=== PATIENT | female | born 1955 | race Caucasian/White ===

== ENCOUNTER 2019-07-06 15:28 | Observation (INO) | payer OTHER ==
[~2019-07-06] VITALS: Ht 162.6 cm; Wt 62.6 kg
--- NOTE | ~2019-07-06 | HEMODYNAMI ---
PATIENT:KENIA SANDHU MEDICAL RECORD: [id number] : 55 LOCATION:[address] [facility]# [id number] ADMISSION DATE: 07/06/19 Generatedon:07/07/201915:36 Patient name: KENIA SANDHU Patient #: [id number] : 1955 Date of study: 07/07/2019 Page: Of Hemodynamic Procedure Report Patient Data Patient Demographics Procedure consent was obtained First Name: KENIA Gender: Female Last Name: PHOEBE : 1955 Middle Initial: A Age: 63 year(s) Patient #: [id number] Race: SSN: [id number] Additional ID: [id number] Contact details [address]: [address] [place] [address] [address] State: [place] City: [place] Zip code: [address] Past Medical History Allergies Allergen Reaction Date Comments Reported Other allergy 07/07/2019 codeine, erythromycin base. Admission Admission Data Admission Date: 07/06/2019 Admission Time: 18:34 Arrival Date: 07/07/2019 Arrival Time: 0:00 Room #: D.2127 Insurance Payor: Private health insurance [facility] #: [id number] Height (in.): 64 BSA: 1.67 (m2) Height (cm.): 162.56 BMI: 23.69 (kg/m2) Weight (lbs.): 138 Weight (kg.): 62.6 Procedure Procedure Types Cath Procedure Diagnostic Procedure LHC [facility] w/Coronaries FFR/IVUS FFR Initial FFR Additional PCI Procedure Coronary Stent Coronary Stent Initial Procedure Description Procedure Date Procedure Date: 07/07/2019 Procedure Start Time: 15:03 Procedure End Time: 15:35 Procedure Staff Name Function Néstor Henning MD Performing Physician Kaylee Da Silva RT Scrub Wale Thomas RN Nurse Montana Marrero RT Monitor Jose Woodard RT Scrub Procedure Data Cath Procedure Fluoroscopy Diagnostic fluoroscopy Total fluoroscopy Time: 6.4 time: 6.4 min min Diagnostic fluoroscopy Total fluoroscopy dose: 451 dose: 451 mGy mGy Contrast Material Contrast Material Type Amount (ml) Isovue 300 124 Entry Location Entry Primary Successful Side Size Upsize Upsize Entry Closure Wiley ccessful Closure Location (Fr) 1 (Fr) 2 (Fr) Remarks Device Remarks Radial Right 6 Fr Mechanical artery Short Compression Estimated blood loss: 10 ml Diagnostic catheters Device Type Used For End Catheter Placement DIAGNOSTIC [place] 110cm 5 Procedure Fr catheter ([id number]) DIAGNOSTIC AR2 MOD 5 Fr Procedure catheter ([id number]) Procedure Complications No complications Procedure Medications Medication Administration Route Dosage 0.9% NaCl I.V. 100 ml/hr Oxygen etCO2 Nasal cannula 2 l/min Heparin Flush Bag added to field 2 bags (1000units/500ml NS) Lidocaine 2% added to field 20 Radial Cocktail added to field 1 syringe (Verapamil 2mg/Nitro 400mcg/Heparin 1500units) Versed I.V. 2 mg Fentanyl I.V. 100 mcg Versed I.V. 2 mg Fentanyl I.V. 50 mcg Heparin Bolus 4000 units Fentanyl I.V. 50 mcg Plavix P.O. 75 mg Hemodynamics Rest BSA: 1.67 (m2) O2 Consumption: Estimated: 155.23 (ml/min) O2 Consumption indexed : Estimated:92.95 (ml/min/m) Heart Rate: 67 (bpm) Snapshots Pre Cath Intra NCS Post Cath Vital Signs Time Heart Resp SPO2 etCO2 NIBP Rhythm Pain Sedation Rate (ipm) (%) (mmHg) (mmHg) Status Level (bpm) 14:57:51 67 13 99 43.3 113/68(82) NSR 0 (11) 10(A) , No pain 15:01:59 66 18 98 39.5 113/61(81) NSR 0 (11) 10(A) , No pain 15:06:05 65 15 98 33.5 117/64(93) NSR 0 (11) 10(A) , No pain 15:10:17 91 11 94 35.8 95/55(70) NSR 0 (11) 10(A) , No pain 15:14:20 71 21 95 38 94/55(73) NSR 0 (11) 10(A) , No pain 15:18:22 69 16 96 38.7 95/59(77) NSR 0 (11) 10(A) , No pain 15:22:24 73 13 97 38.7 98/60(81) NSR 0 (11) 9(A) , No pain 15:26:26 80 12 97 35 107/61(74) NSR 0 (11) 9(A) , No pain 15:30:31 77 25 98 40.3 106/64(82) NSR 0 (11) 10(A) , No pain 15:34:37 72 24 98 26.8 107/62(85) NSR 0 (11) 10(A) , No pain Medications Time Medication Route Dose Verified Delivered Reason Not es Effectiveness by by 14:56:02 0.9% NaCl I.V. 100 Wale Wale Per physician ml/hr Martha Thomas RN RN 14:56:12 Oxygen etCO2 2 l/min Wale Wale for low 02 sats Nasal Lorigan Martha cannula RN RN 14:56:21 Heparin Flush added 2 bags Wale Wale used for Bag to Lorvicky Thomas procedure (1000units/500ml field IVY RN NS) 14:56:31 Lidocaine 2% added 20ml Wale Wale for local to vial Lorigan Lorigan anesthetic field IVY RN 14:56:41 Radial Cocktail added 1 Wale Wale used for (Verapamil to syringe Lorigan Lorvicky procedure 2mg/Nitro field IVY RN 400mcg/Heparin 1500units) 14:58:16 Versed I.V. 2 mg Wale Wale for sedation Martha Thomas RN RN 14:58:24 Fentanyl I.V. 100 mcg Wale Wale for sedation Martha Thomas RN RN 15:04:32 Versed I.V. 2 mg Wale Wale for sedation Martha Thomas RN RN 15:15:10 Fentanyl I.V. 50 mcg Wale Wale for sedation Martha Thomas RN RN 15:18:55 Heparin Bolus 4000 Wale Wale for units Martha Thomas anticoagulation RN RN 15:22:20 Fentanyl I.V. 50 mcg Wale Wale for sedation Martha Thomas RN RN 15:29:08 Plavix P.O. 75 mg Wale Wale for Martha Thomas antiplatelet RN RN therapy Procedure Log Time Note 14:28:18 Informed consent obtained and on chart 14:28:46 Patient Weight : 138 lbs 14:28:51 Patient Height : 64 inches 14:28:51 Insurance Payor : Private health insurance 14:29:04 Arrival Date: 07/07/2019 12:00:00 AM 14::43 Lab Result : Hemoglobin 13.6 g/dl 14::43 Lab Result : Hematocrit 40.1 % 14::43 Lab Result : BUN 29 mg/dl 14::43 Lab Result : Creatinine 0.9 mg/dl 14:30:21 Wale Thomas RN sent for patient. Start room use. 14:33:11 Diagnostic Cath Status : Urgent 14:33:32 ACC Patient presents with Unstable Angina CCS Anginal Class 4--Inability to carry out any physical activity w/o angina. Angina may occur at rest. 14:33:34 ACCPatient has been prescribed/administered the following anti-anginal medication within the last 2 weeks: None 14:41:19 Procedure Status Urgent Heart Cath (IP). 14:45:22 Time tracking: Regular hours (M-F 7:00 - 5:00) 14:45:25 Plan of Care:Hemodynamics will remain stable., Cardiac rhythm will remain stable., Comfort level will be maintained., Respiratory function will remain adequate., Patient/ family verbilizes understanding of procedure., Procedure tolerated without complication., Recovers from procedure without complications.. 14:45:38 Patient received from Med II to CCL 1 Alert and oriented. Tansferred to table in Supine position. 14:45:39 Warm blankets applied, and chandu hugger turned on for patient comfort. 14:45:40 Correct patient and procedure confirmed by team. 14:45:40 ECG and BP/O2 sat monitors applied to patient. 14:46:14 H&P Date Dictated: 07/06/2019 Within 30 days and on chart.. 14:46:29 Pre-procedure instructions explained to patient. 14:46:29 Pre-op teaching completed and patient verbalized understanding. 14:46:32 Family in patients room. 14:46:34 Patient NPO since Midnight. 14:46:56 Patient allergic to Other allergycodeine, erythromycin base. 14:47:08 Is the patient allergic to Iodine/contrast media? No. 14:47:17 Is patient on blood thinner?Yes 14:47:20 ACC The patient was administered the following blood thiners within the last 24 hours: ACCAspirin, ACCPlavix 14:47:21 Patient diabetic? No. 14:47:24 Previous problem with sedation/anesthesia? No ? 14:47:25 Snore? Yes 14:47:26 Sleep apnea? No 14:47:27 Deviated septum? No 14:47:28 Opens mouth fully? Yes 14:47:29 Sticks out tongue? Yes 14:47:33 Airway obstruction? No ? 14:47:36 Dentures? No ? 14:56:02 0.9% NaCl 100 ml/hr I.V. was administered by Wale Thomas RN; Per physician; 14:56:12 Oxygen 2 l/min etCO2 Nasal cannula was administered by Wale Thomas RN; for low 02 sats; 14:56:12 Pre procedure: right dorsailis pedis pulse 2+ Normal; easily identifiable; not easily obliterated 14:56:14 Modified Salvador's test Ulnar < 7 seconds 14:56:17 Patient pain scale 0/10 ?. 14:56:21 Heparin Flush Bag (1000units/500ml NS) 2 bags added to field was administered by Wale Thomas RN; used for procedure; 14:56:24 Patient pain scale 5/10 chest pain. 14:56:30 IV patent on arrival in right wrist with 0.9% NaCl at [facility]. 14:56:31 Lidocaine 2% 20ml vial added to field was administered by Wale Thomas RN; for local anesthetic; 14:56:32 Lab results completed and on chart. 14:56:35 Right Radial & Right Groin area was prepped with chlora-prep and draped in sterile fashion 14:56:36 Alarms reviewed by R. N. 14:56:36 Sharps counted by scrub and verified by R.N. 14:56:41 Radial Cocktail (Verapamil 2mg/Nitro 400mcg/Heparin 1500units) 1 syringe added to field was administered by Wale Thomas RN; used for procedure; 14:56:41 Physician arrived 14:56:42 --------ALL STOP TIME OUT------ 14:56:42 Final Timeout: patient, procedure, and site verified with staff and physician. All members of the team are in agreement. 14:56:43 Vital chart was started 14:56:44 Right Radial & Right Groin site verified by team. 14:56:46 Fire Safety Assessment: A--An alcohol-based skin anteseptic being used preoperatively., C--Open oxygen or nitrous oxide is being used., D--An ESU, laser, or fiber-optic light is being used. 14:56:49 Physical assessment completed. ASA score P 2 - A patient with mild systemic disease as per Néstor Henning MD. 14:57:02 2) 60-89 Mildly reduced kidney function, and other findings (as for stage 1) point to kidney disease. 14:57:17 Maximum allowable contrast dose (3.7 X eGFR X 0.75)186 ml. 14:57:20 Sedation plan: IV Moderate Sedation Medication:Versed, Fentanyl 14:57:25 Use device set Radial Dx or PCI 14:57:26 ACIST Syringe (10792) opened to sterile field. 14:57:26 Medline Cath Pack ([id number]) opened to sterile field. 14:57:27 Bag Decanter (2002S) opened to sterile field. 14:57:27 ACIST Hand Control (86580) opened to sterile field. 14:57:27 ACIST Manifold (89069) opened to sterile field. 14:57:28 Tegaderm 4 x 4 (1626W) opened to sterile field. 14:57:28 MBrace Wrist Support ([id number]) opened to sterile field. 14:57:29 SHEATH 6FR RAIN (0653659) opened to sterile field. 14:57:31 EMERALD Guide Wire (031-913) opened to sterile field. 14:58:16 Versed 2 mg I.V. was administered by Wale Thomas RN; for sedation; 14:58:24 Fentanyl 100 mcg I.V. was administered by Wale Thomas RN; for sedation; 14:59:03 Baseline sample Acquired. 14:59:06 Rhythm: sinus rhythm 14:59:07 Full Disclosure recording started 15:03:23 Procedure started. 15:03:26 Local anesthetic to right radial artery with Lidocaine 2% by Néstor Henning MD.INITIAL ACCESS ONLY 15:03:35 A 6 Fr Short sheath was inserted into the Right Radial artery 15:04:32 Versed 2 mg I.V. was administered by Wale Thomas RN; for sedation; 15:06:26 Zero performed for pressure channel P1 15:06:29 Zero performed for pressure channel P1 15:06:45 A DIAGNOSTIC [place] 110cm 5 Fr catheter (593521) was advanced over the wire and used for Procedure. 15:07:15 LV gram done using FERREIRA 15:07:17 Injector settings: Ml/sec: 5, Volume: 15, 15:07:30 LV hemodynamics recorded. 15:07:58 EF : 60 % 15:08:31 Catheter exchanged over wire. 15:09:12 GUIDE 6FR XBLAD 3.5 catheter (04785836) opened to sterile field. 15:10:11 6 Fr xblad 3.5 guide catheter was inserted over the wire 15:10:29 LCA angiography performed. 15:13:39 Dundas Verrata Plus pressure wire (11395X) opened to sterile field. 15:13:42 INFLATOR Merit BasixCompak (TJ5079) opened to sterile field. 15:13:51 Proceeding to intervention. 15:14:40 FFR/IFR wire advanced. 15:15:10 Fentanyl 50 mcg I.V. was administered by Wale Thomas RN; for sedation; 15:15:55 Wire advanced across lesion. 15:16:57 pLAD lesion measured at 75 with IFR 15:17:22 Pre PCI Site: [place] pLAD has 70% stenosis. 15:17:58 ACT drawn and resulted at 277 seconds. (normal therapeutic range 180-240 seconds). 15:18:55 Heparin Bolus 4000 units was administered by Wale Thomas RN; for anticoagulation; 15:20:16 Place stent Inflation Number: 1 A COBRA RX 3.5 X 24 Stent was prepped and advanced across the Prox LAD 75. The stent was deployed at 13 EDWAR for 0:10 (min:sec) 0. 15:21:07 Stent catheter was removed intact over wire. 15:21:08 Wire removed. 15:21:09 Guide catheter removed. 15:21:57 A DIAGNOSTIC AR2 MOD 5 Fr catheter (562852Y) was advanced over the wire and used for Procedure. 15:22:20 Fentanyl 50 mcg I.V. was administered by Wale Thomas RN; for sedation; 15:22:25 RCA angiography performed. 15:23:01 Catheter removed. 15:23:24 GUIDE 6FR AR 2.0 catheter (CG3QO28) opened to sterile field. 15:23:42 6 Fr AR 2 guide catheter was inserted over the wire 15::35 FFR/IFR wire advanced. 15:26:37 Wire advanced across lesion. 15::55 pRCA lesion measured at 1.0 with IFR 15:27:12 Wire removed. 15:27:13 Guide catheter removed. 15:: TR BAND Standard ([id number]) opened to sterile field. 15:28:04 Sheath removed intact; hemostasis achieved with Mechanical Compression to the Right Radial artery. 15:28:07 Procedure ended.(Physican Out) 15:28:20 Fluoroscopy time 06.40 minutes. 15:: Flurop Dose total: 451 15:: Fluoroscopy dose: 451 mGy 15:: Dose Area Product 09401 mGy/cm. 15::55 Contrast amount:Isovue 300 124ml. 15:29:08 Plavix 75 mg P.O. was administered by Wale Thomas RN; for antiplatelet therapy; 15:29:36 Maximum allowable dose exceeded? No. 15:29:37 Sharps counted by scrub and verified by R.N. 15:30:24 ACC Pre-intervention BAN Flow is 3. 15:30:29 ACC Post-intervention BAN Flow is 3. 15:31:53 ACCDominant side:Right 15:31:58 TR band inflated with 12cc of air. 15:32:11 Insertion/operative site no bleeding no hematoma. 15:32:15 Post-op/insertion site Right Radial artery dressed using a 4 x 4 and Tegaderm. 15:32:21 Post right radial artery:stable, soft, clean and dry 15:32:22 Post Procedure Pulses reassessed and unchanged 15:32:26 Post-procedure physical assessment completed. ASA score P 2 - A patient with mild systemic disease as per Néstor Henning MD. 15:32:28 Post procedure rhythm: unchanged. 15:32:32 Estimated blood loss: 10 ml 15:32:34 Post procedure instruction explained to patient.Patient verbalizes understanding. 15:32:34 Patient needs reinforcement of post procedure teaching. 15:33:24 Procedure type changed to Cath procedure, Diagnostic procedure, [facility], [facility] w/Coronaries, FFR/IVUS, FFR Initial, FFR Additional, PCI procedure, Coronary Stent, Coronary Stent Initial 15:35:11 Procedure and supply charges have been captured, reviewed, submitted and are correct. 15:35:14 Procedure Complication : No complications 15:35:16 Vital chart was stopped 15:35:26 See physician's report for complete and final results. 15:35:29 Report given to PCU. 15:35:31 Patient transfered to PCU with Stretcher. 15:35:33 Procedure ended. 15:35:33 Full Disclosure recording stopped 15:35:40 ACC-PCI Only Patient was given prescriptions, or instructed by Néstor Henning MD to start/continue the following medications upon discharge: Aspirin, Plavix 15:35:42 End room use (Document Last) Intervention Summary Intervention Notes Time ActionType Lesion and Equipment Action# Pressure Duration Attributes Used 15:20:16 Place stent Prox LAD COBRA RX 1 13 00:10 3.5 X 24 Stent Device Usage Item Name Manufacture Quantity Catalog Hospital Part Current Minimal Lot# / Number Charge Number Stock Stock Serial# Code ACIST Syringe Acist 1 26245 170390 639390 795154 20 (62167) Medical Systems Inc Medline Cath Medline 1 [id number] 430462 55261 801920 5 Pack ([id number]) Bag Decanter Microtek 1 2001S 507903 48731 196269 5 (2001S) Medical Inc. ACIST Hand Acist 1 96621 458127 200348 189979 5 Control Medical (81844) Systems Inc ACIST Manifold Acist 1 04280 410886 205703 950816 5 (02329) Medical Systems Inc Tegaderm 4 x 4 3M 1 1626W 080982 114361 721133 5 (1626W) MBrace Wrist Advanced 1 140-0250-00 081957 29272 682818 5 Support Vascular (063571712) Dynamics SHEATH 6FR Cardinal 1 4705867 192968 2664157 007065 5 RAIN (1748394) [facility] EMERALD Guide Cardinal 1 502-455 150742 203681 017074 5 Wire (837-457) [facility] DIAGNOSTIC Terumo 1 40-0063 488436 297722 705811 5 [place] 110cm 5 Fr catheter (308279) GUIDE 6FR Cardinal 1 80942972 969568 656463 110776 10 XBLAD 3.5 Health catheter (64001642) Dundas Dundas 1 52303T 698616 512373411 108491 5 Verrata Plus pressure wire (82701H) INFLATOR Merit Merit 1 PD6005 268404 525602 624637 15 [facility] Medical (LI0345) COBRA RX 3.5 X Celonova 1 029983 [id number] 4673746 5 [id number] 24 stent Biosciences () DIAGNOSTIC AR2 Cardinal 1 [id number] 105580 206173 907034 20 MOD 5 Fr Health catheter (725548W) GUIDE 6FR AR Medtronic 1 [id number] 122468 27216 049053 1 2.0 catheter (MH0MU51) TR BAND Terumo 1 TFH54-LPD 832970 993997 804414 40 Standard ([id number]) Signature Audit [place] Stage Time Signature Unsigned Intra-Procedure 07/07/2019 Jose Woodard 3:36:50 PM RT(R) Signatures Performing Physician : Signature : Néstor Henning MD Date : Time : Nurse : Wale Thomas Signature : RN Date : Time : Monitor : Montana Marrero RT Signature : Date : Time : [facility] [address] [place] [address]
[2019-07-06] MEDS ORDERED: DYRENIUM50 MG PO (16:03)
[2019-07-06] MEDS ORDERED: LINZESS290 MCG PO (16:03)
[2019-07-06] MEDS ORDERED: K-DUR20 MEQ PO (16:03)
[2019-07-06] MEDS ORDERED: AMBIEN5 MG PO (16:04)
[2019-07-06] MEDS ORDERED: CELEBREX 100 M100 MG PO (16:04)
[2019-07-06] MEDS ORDERED: LEVOXYL125 MCG PO (16:04)
[2019-07-06] MEDS ORDERED: LEXAPRO10 MG PO (16:04)
[2019-07-06 16:13] LABS: BASOPHILS 0.4 % (0-2); EOSINOPHILS 1.9 % (0-7); HEMATOCRIT 40.1 % (36.0-48.0); HEMOGLOBIN 13.6 g/dL (12-16); IMMATURE GRANULOCYTES 0.1 % (0-5); LYMPHOCYTES 33.3 % (15-50); MCH 29.9 pg (26.0-34.0); MCHC 33.9 g/dL (31.0-37.0); MCV 88.1 fL (80.0-100.0); MEAN PLATELET VOLUME 8.6 fL (7.4-10.4); MONOCYTES 9.7 % (2-11); NEUTROPHILS 54.6 % (40-80); PLATELET COUNT 263 10x3/uL (130-400); RBC 4.55 10x6/uL (4.00-5.40); RDW 15.1 % (11.5-14.5)
[2019-07-06 16:21] LABS: APTT 28.6 SECONDS (22.8-39.4); INR 0.87 (0.85-1.17); PROTIME 11.3 SECONDS (11.6-15.0)
[2019-07-06 16:22] LABS: ALBUMIN 3.2 g/dL (3.4-5.0); ALKALINE PHOSPHATASE 106 U/L (46-116); ALT (SGPT) 43 U/L (10-68); BILIRUBIN - TOTAL 0.29 mg/dL (0.2-1.3); CALC OSMOLALITY 282 mosm/kg (275-300); CALCIUM 8.4 mg/dL (8.5-10.1); CARBON DIOXIDE 29.9 mmol/L (21.0-32.0); CHLORIDE - SERUM 102 mmol/L (98-107); CREATININE - SERUM 0.9 mg/dL (0.6-1.3); GLUCOSE 108 mg/dL (74-106); POTASSIUM - SERUM 3.2 mmol/L (3.5-5.1); PROTEIN - SERUM 6.8 g/dL (6.4-8.2); SODIUM 138 mmol/L (136-145); UREA NITROGEN 29 mg/dL (7-18); eGFR NON AFRICAN AMERICAN 67 mL/min (90-120)
[2019-07-06 16:33] LABS: CKMB 1.5 U/L (0.0-3.6); CREATINE KINASE 55 UL (21-215); MAGNESIUM - SERUM 2.5 mg/dL (1.8-2.4)
[2019-07-06 16:36] LABS: TROPONIN-I < 0.017 ng/mL (0.000-0.060)
--- NOTE | 2019-07-06 18:02 | NUR ---
PT AMBULATES TO BATHROOM WITH STEADY GAIT.
--- NOTE | 2019-07-06 18:33 | NUR ---
CALLED TO GIVE REPORT FOR ROOM 2121.
--- NOTE | 2019-07-06 18:35 | NUR ---
SOMEONE PICKED UP AND STATED THAT THEY WERE UNAWARE THIS ROOM WAS BEING HANDED OUT AND TO HOLD.
--- NOTE | 2019-07-06 18:37 | NUR ---
ANOTHER PERSON PICKED UP THE LINE AND ADVISED "THEY WILL HAVE TO CALL YOU BACK" AND IMMEDIATELY HUNG UP ON ME WITHOUT GIVING ME A CHANCE TO ANSWER.
--- NOTE | 2019-07-06 18:40 | NUR ---
CALLED BACK TO GIVE REPORT TO 2120 AND GAVE REPORT TO [employer] CONSULTANT NURSE.
[2019-07-06 20:00] VITALS: BP 110/63
[2019-07-06 21:58] VITALS: BP 110/63; Ht 162.6 cm; Wt 62.6 kg
[2019-07-06 22:56] LABS: CREATINE KINASE 49 UL (21-215)
[2019-07-06 22:57] LABS: CKMB 1.1 U/L (0.0-3.6); TROPONIN-I < 0.017 ng/mL (0.000-0.060)
[2019-07-07 01:05] VITALS: BP 102/58
[2019-07-07 05:36] VITALS: BP 105/60
[2019-07-07 06:11] LABS: CKMB 1.1 U/L (0.0-3.6); CREATINE KINASE 51 UL (21-215)
[2019-07-07 06:22] LABS: TROPONIN-I < 0.017 ng/mL (0.000-0.060)
--- NOTE | 2019-07-07 07:49 | NUR ---
RECIEVED REPORT. PATIENT DENIES ANY NEEDS AT THIS TIME. SHE DOES WANT TO GET UP AND TAKE A SHOWER. WIT PAUSE HER IV AND TAPE UP HER IV SITE SO SHE CAN TAKE A SHOWER SOON.
[2019-07-07 08:32] VITALS: BP 102/63
--- NOTE | 2019-07-07 09:10 | NUR ---
CONSENTS SIGNED AND IN CHART FOR [facility] [employer] TODAY. PATIENT IS ALERT AND ORIENTED. IV IN RIGHT FOREARM IS INFUSING ORDERED. PATIENT IS NPO. SHE HAS NOT HAD ANYTHING TO EAT OF DRINK SINCE BEFORE MIDNIGHT LAST NIGHT.
--- NOTE | 2019-07-07 10:54 | NUR ---
PATIENT HAS BEEN PRE OPED. SHE STATES SHE FEELS DIZZY AND IS HAVING SOME CHEST PRESSURE, BUT NOT PAIN. THE BENADRYL IS KICKING IN.
[2019-07-07 12:43] VITALS: BP 107/63
--- NOTE | 2019-07-07 15:07 | NUR ---
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
--- NOTE | 2019-07-07 15:33 | HP ---
PATIENT: KENIA SANDHU MEDICAL RECORD: [id number] ACCOUNT: [id number] LOCATION:[address] : 55 ADMISSION DATE: 07/06/19 PCP: DIMITRY BRAND MD HISTORY AND PHYSICAL EXAMINATION DIAGNOSES: 1. Unstable angina. 2. Coronary artery disease. 3. Family history of coronary disease. 4. Shortness of breath, dyspnea on exertion. HISTORY OF PRESENT ILLNESS: Mrs. Sandhu started having typical anginal chest discomfort yesterday. She has a past history of coronary artery disease, cardiac catheterization by Dr. Camp in [place] approximately 3 years ago, was told she had 30-50% stenosis. She did well until yesterday. She started having a chest pressure, chest pain, like an elephant sitting on her chest. She has continued to have episodes of that this morning. Her troponin is normal. Her EKG is with no acute changes. Her chest pain is a 5/10. PHYSICAL EXAMINATION: GENERAL APPEARANCE: Well-nourished, well-developed, appears stated age. Level of distress, comfortable. PSYCHIATRIC: Mental status, alert, normal affect. Orientation, oriented to time, place and person. EYES: Lids and conjunctiva, noninjected. No discharge, no pallor. ENT: Lips, teeth, gums, normal dentition. Oropharynx, no cyanosis, no pallor. NECK: Carotid arteries, bilateral normal upstroke, no bruits, no thrills. JUGULAR VEINS: No jugular venous pressure or distention. CERVICAL LYMPH NODES: Nontender, nonenlarged. THYROID: Not enlarged. Nontender. No nodules. LUNGS: Respiratory effort, unlabored. CHEST: Normal curvature. No thoracic deformity. No chest wall tenderness. Percussion, resonant. Auscultation, clear. No wheezes, no rales, no rhonchi. CARDIOVASCULAR: Precordial exam, nondisplaced. No heaves or pericardial thrills. Rate and rhythm, regular. Heart sounds, normal S1, normal S2. No S3, no gallop, no rub. Systolic murmur, not heard. Diastolic murmur, not heard. EXTREMITIES: No cyanosis, no edema. Peripheral pulses, full and equal in all extremities, except as noted. No bruits appreciated. ABDOMEN: Soft, nondistended. Normal aorta. No bruit. Nontender. No masses. Liver, nontender, no hepatomegaly. Spleen, nontender, no splenomegaly. MUSCULOSKELETAL: No joint tenderness. No joint swelling. No erythema. NEUROLOGICAL: Normal gait, normal strength, normal tone. SKIN: Warm and dry. OVERALL IMPRESSION: Chest pain compatible with angina with continued chest pain in a patient with a past history of coronary artery disease. She has a high likelihood of progression of her disease, now to hemodynamically significant. We will proceed with coronary angiography. Further care depends upon the findings of the angiography. TRANSINT:[id number] Voice Confirmation ID: [id number] DOCUMENT ID: [id number] HISTORY AND PHYSICAL [id number] KENIA SANDHU JEFFREY MD at 1533 CC: [id number] DICTATION DATE: 07/07/19811 AUDIO/VIDEO TECHNICIAN: 07/07/19 0842 ADM IN [place] [id number] [place] [id number]
--- NOTE | 2019-07-07 16:03 | NUR ---
PATIENT RETURNED FROM [facility]. SHE HAD ONE STENT PLACED IN THE LAD. THEY WENT THROUGH HER RIGHT WRIST. SHE HAS A TR BAND WITH 12 CC OF AIR TO HER RIGHT WRIST. SHE MUST STAY FLAT FOR 4 HOURS. SHE HAD A FEW SIPS OF WATER. THERE IS A DISCHARGE AND SO WHEN HER 4 HOURS IS UP SHE CAN GO HOME. IV IS INFUSING ORDERED. PATIENT DENIES ANY PAIN AT THIS TIME. HER VITAL SIGNS ARE STABLE.
[2019-07-07 16:14] VITALS: BP 110/59
--- NOTE | 2019-07-07 16:27 | NUR ---
PATIENT REPORTS THAT HER YELLOW AND WHITE DUFFLE BAG IS MISSING FROM HER ROOM. I DID NOT SEE A BAG IN THE ROOM WHEN SHE WENT TO SURGERY. THERE HAVE BEEN FAMILY MEMBERS IN THE ROOM THE ENTIRE DAY. SHE IS NOT SURE IF THE TOOK THE BAG HOME OR NOT AND HE DOES NOT REMEMBER. WILL KEEP LOOKING FOR THE BAG.
[2019-07-07] MEDS ORDERED: BAYER CHEWABLE81 MG PO (17:58)
[2019-07-07] MEDS ORDERED: PLAVIX75 MG PO (17:58)
--- NOTE | 2019-07-07 19:50 | NUR ---
DISCHARGE PAPERS GONE OVER AND SIGNED BY PT. PRESCRIPTIONS GIVEN A LONG WITH FOLLOW UP APPOINTMENT.
--- NOTE | 2019-07-07 20:10 | NUR ---
TR BAND TO RIGHT WRIST REMOVED, NO SWELLING, BLEEDING OR HEMATOMA NOTED. IV TO RIGHT FOREARM REMOVED, TIP INTACT. COVERED WITH BAND AID.
--- NOTE | 2019-07-08 08:50 | MORECARE ---
CASE MANAGEMENT DISCHARGE SUMMARY PATIENT: KENIA SANDHU UNIT: [id number] ADM DATE: 07/06/19 AGE: 63 : 55 SEX: F ROOM/BED: D.3483 AUTHOR: JOHN JACOBS PHYSICIAN: REFERRING PHYSICIAN: ANNA SPIVEY MD DATE OF SERVICE: 07/08/19 Discharge Plan Patient Name: KENIA SANDHU Facility: [facility]:[place] : 1955 Planned Disposition: Home Anticipated Discharge Date: 07/07/19 Discharge Date: 07/07/2019 Expected LOS: 1 Initial Reviewer: [email or web address] Initial Review Date: 07/08/2019 Generated: 07/08/19 9:50 am Patient Name: KENIA SANDHU Page [phone] at 0850 All edits/amendments must be made on the electronic document DICTATION DATE: 07/08/19 0850 PEDIATRIC SPEECH THERAPIST: ERVIN 07/08/19 0850 RPT#: [id number] DC DATE:07/07/19 STATUS: DIS IN [place] [address] [place] [address] END OF REPORT
== END 2019-07-07 20:26 | disposition home or self-care (01) ==
LOC: D.ER 15:28 → D.M2 18:34 → OBSVTIME 18:35 → D.M2 07-07 20:26
PROVIDERS: Emergency Medicine; ADMIT Internal Medicine Interventional Cardiology; ATTEND Internal Medicine Interventional Cardiology
DX: I25.110 Atherosclerotic heart disease of native coronary artery with unstable angina pectoris (principal); R06.02 Shortness of breath